=== PATIENT | female | born 2000 | race Hispanic/Latino ===

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

== ENCOUNTER 2022-07-31 13:46 | Emergency (ER) | payer BC, MEDICAID ==
[~2022-07-31] VITALS: Ht 162.6 cm; Wt 60.3 kg
[2022-07-31] MEDS ORDERED: IBUP-2070 PO (16:05)
[2022-07-31 16:12] VITALS: BP 118/84
[2022-07-31] MEDS ORDERED: IBUPROFEN 800 MG TAB PO ONE (16:30)
== END 2022-07-31 16:15 | disposition home or self-care (01) ==
LOC: EDH 13:46
DX: S62.316A Displaced fracture of base of fifth metacarpal bone, right hand, initial encounter for closed fracture (principal); Z79.1 Long term (current) use of non-steroidal anti-inflammatories (NSAID); X58.XXXA Exposure to other specified factors, initial encounter; Y93.89 Activity, other specified; Y92.89 Other specified places as the place of occurrence of the external cause; Y99.8 Other external cause status
CPT/HCPCS: 29125; 73130

== ENCOUNTER 2023-08-09 20:13 | Emergency (ER) | payer MEDICAID, OTHER ==
[~2023-08-09] VITALS: Ht 154.9 cm; Wt 54.4 kg
[~2023-08-09 20:13] MED LIST: IBUP-2070 PO
[2023-08-09 20:14] VITALS: BP 116/73; PULSE 111; RESP 20
[2023-08-09 20:47] LABS: INFLUENZA TYPE A Negative For Type A (NEGATIVE)
[2023-08-09 20:49] LABS: INFLUENZA TYPE B Positive For Type B (NEGATIVE)
[2023-08-09 21:05] LABS: SARS-CoV-2, RNA, NAAT NEGATIVE SARS CoV-2 (NEGATIVE)
[2023-08-09] MEDS ORDERED: ONDA-104 PO (21:24)
[2023-08-09] MEDS ORDERED: IBUP-1493 PO (21:24)
[2023-08-09 21:25] VITALS: TEMP 100.9; O2SAT 99
[2023-08-09] MEDS ORDERED: ACETAMINOPHEN 325 MG TAB PO ONE (21:30)
== END 2023-08-09 21:48 | disposition home or self-care (01) ==
LOC: EDH 20:13
DX: J10.1 Influenza due to other identified influenza virus with other respiratory manifestations (principal); Z20.822 Contact with and (suspected) exposure to COVID-19; Z90.49 Acquired absence of other specified parts of digestive tract
CPT/HCPCS: 99283; 87635; 87804 ×2; C9803